=== PATIENT | female | born 1940 | race Caucasian/White ===

== ENCOUNTER → 2017-09-26 | Outpatient (CLI) | payer MEDICARE, BC ==
[~2017-09-26] MED LIST: ALE70 PO; ASPI-715 PO; CALC-649 PO; CO Q10; CYC10 PO; FISH OIL1 CAP PO; GLUC-198 PO; IBUP-1618 PO; LEVO75TA68 PO; MULT-1335 PO; RED RICE YEAST
== END ==
LOC: LAB 09:52
PROVIDERS: ATTEND Nurse Practitioner Gerontology
DX: R19.7 Diarrhea, unspecified (principal); R10.9 Unspecified abdominal pain

== ENCOUNTER → 2018-09-09 | Outpatient (CLI) | payer MEDICARE, BC ==
[~2018-09-09] MED LIST changes: +CLOB15OI16 TP; +HALO15OI15 TP
== END ==
LOC: RESP 01:29
PROVIDERS: ATTEND Internal Medicine Cardiovascular Disease
DX: Z13.6 Encounter for screening for cardiovascular disorders (principal); R42 Dizziness and giddiness; E78.00 Pure hypercholesterolemia, unspecified; R07.89 Other chest pain
CPT/HCPCS: 93017; 93350